=== PATIENT | male | born 1955 | race Caucasian/White ===

== ENCOUNTER 2018-06-20 12:28 | Day surgery (SDC) | payer OTHER, SELFPAY ==
[2018-06-20 12:58] VITALS: BP 143/88; PULSE 71; RESP 12; TEMP 36.2; O2SAT 96; BMI 22.8
[2018-06-20] MEDS: SODIUM CHLORIDE 0.9% 1,000 ML 42 ML IV (12:58)
--- NOTE | 2018-06-20 14:08 | PM.HP.1 ---
History of Present Illness Date Patient Seen: 06/20/18 Time Patient Seen: 14:08 Chief complaint: [id number] Narrative: Need for 1st screening colonoscopy Patient History Family & Social History Social History: household members friend(s) Meds Home Medications Medication Instructions Recorded Confirmed Type No Known Home Medications 06/20/18 06/20/18 History Allergies Allergy/AdvReac Type Severity Reaction Status Date / Time No Known Drug Allergies Allergy Verified 06/20/18 13:11 Exam Vital Signs (past 8 hours): - 06/20/18 12:58 Temperature 97.1 F L Pulse Rate 71 Respiratory Rate 12 Blood Pressure 143/88 H Pulse Oximetry 96 Oxygen Delivery Method Room Air Narrative Exam Narrative: Oropharynx free of lesion Chest clear to auscultation percussion Cardiac exam reveals no S3 or murmur Assessment & Plan Plan: Assessment/Plan Narrative: Need for 1st screening colonoscopy. Risks, benefits, alternatives have been explained.
[2018-06-20] MEDS: fentaNYL 250 MCG/5 ML INJ IV (14:13)
[2018-06-20] MEDS: MIDAZOLAM 5 MG/5 ML VIAL IV (14:14)
[2018-06-20 14:32] VITALS: BP 109/72; PULSE 87; RESP 17; TEMP 36.4; O2SAT 97
--- NOTE | 2018-06-20 14:35 | PM.OP.ENDO ---
Operative Date/Time/Diagnoses Date of procedure: 06/20/18 Time of procedure: 14:36 Pre-op diagnosis: See indication Post-op diagnosis: same (See findings) Procedure & Clinicians Study performed: Colonoscopy Same procedure as scheduled: Yes Indications: First screening colonoscopy Surgeon: Manuela Conte Procedure Notes Procedure in detail: Procedure in detail: After informed consent was obtained the patient was placed in left lateral decubitus position. The video colonoscope was introduced the rectum slowly advanced to the cecum. On slow withdrawal mucosa was carefully examined. The scope was removed. The patient tolerated the procedure well. Blood loss none Complications none Sedation Versed 7 mg, fentanyl 200 mcg IV titration Total sedation time 21 min Findings 1. normal colonoscopy to cecum other than a few scattered left-sided diverticula Patient will need follow-up colonoscopy in 10 years.
[2018-06-20 14:37] VITALS: BP 120/83; PULSE 74; RESP 16; TEMP 36.6; O2SAT 97
[2018-06-20 14:42] VITALS: BP 114/71; PULSE 74; RESP 14; TEMP 36.1; O2SAT 95
[2018-06-20 14:46] VITALS: BP 127/82; PULSE 81; RESP 14; TEMP 36.6; O2SAT 98
[2018-06-20 15:39] VITALS: BP 133/83; PULSE 69; RESP 20; TEMP 36.6; O2SAT 95
== END 2018-06-20 15:25 | disposition home or self-care (01) ==
PROVIDERS: PCP Internal Medicine; Visit Provider Internal Medicine Gastroenterology
PROC: 0DJD8ZZ Inspection of Lower Intestinal Tract, Via Natural or Artificial Opening Endoscopic (ICD-10-PCS; CPT 45378; principal; 2018-06-20 14:00)
DX: Z12.11 Encounter for screening for malignant neoplasm of colon (principal); K57.30 Diverticulosis of large intestine without perforation or abscess without bleeding
CPT/HCPCS: 45378; J2250; J3010